=== PATIENT | male | born 1950 | race Caucasian/White ===

== ENCOUNTER → 2023-09-10 12:54 | Outpatient (REF) | payer MEDICARE, OTHER, SELFPAY | LOC: RAD 12:54 | PROVIDERS: ATTENDING PHYSICIAN Nurse Practitioner Family | DX: M54.41 Lumbago with sciatica, right side (principal) | CPT/HCPCS: 72110; 73502 ==

== ENCOUNTER → 2023-11-19 10:36 | Outpatient (REF) | payer MEDICARE, OTHER, SELFPAY | LOC: MRI 3T 10:36 | PROVIDERS: ATTENDING PHYSICIAN Surgery; FAMILY PHYSICIAN Internal Medicine Geriatric Medicine | DX: R97.20 Elevated prostate specific antigen [PSA] (principal) | CPT/HCPCS: 72197; A9575 ==

== ENCOUNTER → 2023-12-04 17:26 | Outpatient (REF) | payer MEDICARE, OTHER, SELFPAY | LOC: CLAB 17:26 | PROVIDERS: ATTENDING PHYSICIAN Surgery | DX: R97.20 Elevated prostate specific antigen [PSA] (principal) | CPT/HCPCS: 88305 ==

== ENCOUNTER 2024-01-10 06:07 | Outpatient (RCR) | payer MEDICARE, OTHER, SELFPAY | END 2024-01-10 23:59 | disposition home or self-care (01) | LOC: RPT 06:07 | PROVIDERS: ATTENDING PHYSICIAN Specialist; FAMILY PHYSICIAN Internal Medicine Geriatric Medicine | DX: C61 Malignant neoplasm of prostate (principal); Z73.6 Limitation of activities due to disability | CPT/HCPCS: 97162; 97530 ==

== ENCOUNTER 2024-01-15 06:13 | Inpatient (IN) | payer MEDICARE, OTHER, SELFPAY ==
[2024-01-10 08:44] LABS: Hematocrit 43.6 % (39.0-52.0); Hemoglobin 14.2 g/dL (13.0-18.0); Mean Corp Hgb Conc. 32.6 g/dL (33.0-37.0); Mean Corpuscular Hgb 30.7 pg (27.0-31.0); Mean Corpuscular Volume 94.2 fL (80.0-94.0); Mean Platelet Volume 10.8 fL (7.4-10.4); Platelet Count 219 10^3/uL (130-400); Red Blood Cell Count 4.63 10^6/uL (4.70-6.10); Red Cell Dist. Width 13.6 % (11.5-14.5); White Blood Cell Count 6.8 10^3/uL (4.8-10.8)
[2024-01-10 09:40] LABS: Blood Urea Nitrogen 29 mg/dl (9-20); Calcium 9.4 mg/dl (8.4-10.2); Carbon Dioxide 25 mmol/L (22-30); Chloride 104 mmol/L (98-107); Glucose 82 mg/dl (70-99); Potassium 4.8 mmol/L (3.5-5.1); Sodium 138 mmol/L (135-145); eGFR > 60.00
[2024-01-10 10:09] VITALS: BMI 31.2
[2024-01-10 10:19] LABS: Urine Albumin Negative (Neg - Trace); Urine Bilirubin Negative (Negative); Urine Character Clear (Clear); Urine Color Yellow; Urine Glucose Negative (Negative); Urine Ketone Negative (Negative); Urine Leukocyte Negative (Negative); Urine Nitrite Negative (Negative); Urine Occult Blood Negative (Negative); Urine Urobilinogen Negative (Neg - 1+)
[2024-01-15] VITALS (24 sets, daily range): BP systolic 97–131; BP diastolic 55–102; BMI 31.2
[2024-01-15] MEDS: NEBCIN 480 MG/100 ML ENEMA 1 BOTTLE RECTAL (07:10)
--- NOTE | 2024-01-15 09:39 | W.IMMPOSTOP ---
Surgical Immed Post Op Note
-
Primary Surgeon: Cal
Assisting Surgeon: Ama
Pre-op Diagnosis: Prostate cancer
Post-op Diagnosis: Same
Procedure Performed: Radical perineal prostatectomy, bladder neck reconstruction
Anesthesia Type: GET
Specimen / Cultures: prostate gland, bladder neck and urethral margins for frozen section
Estimated Blood Loss: 150 ml
Complications: None
[2024-01-15] MEDS: DETROL LA 4 MG PO (09:59)
[2024-01-15] MEDS: VALIUM INJECTION 5 MG IV (10:02)
[2024-01-15] MEDS: DILAUDID 0.25 MG IV ×2 (10:42→13:30)
[2024-01-15 10:43] LABS: Hematocrit 39.2 % (39.0-52.0); Hemoglobin 13.1 g/dL (13.0-18.0)
[2024-01-15] MEDS: TORADOL 15 MG IV ×3 (10:44→21:44)
[2024-01-15 10:56] LABS: Blood Urea Nitrogen 17 mg/dl (9-20); Calcium 7.9 mg/dl (8.4-10.2); Carbon Dioxide 22 mmol/L (22-30); Chloride 107 mmol/L (98-107); Estimated Creatinine Clearance 81 ml/min; Glucose 167 mg/dl (70-99); Potassium 3.9 mmol/L (3.5-5.1); Sodium 138 mmol/L (135-145); eGFR > 60.00
[2024-01-15] MEDS: NSS with KCL 20 MEQ 1000 IV ×2 (11:38→21:45)
[2024-01-15] MEDS: DILAUDID 0.5 MG IV (12:13)
--- NOTE | 2024-01-15 14:00 | PTCARENOTE ---
Pt received from the PACU via bed. Transport was w/o incident. Pt is awake, sl drowsy and easily arousable, able to answer questions approp. VSS, Pt is afebrile. Dressing to Perirectal area with dressing showing moderate amount of bloody drainage.
Pt with bao drain from wound area, drainage expected. Dressing reinforced. Pt instructed on plan of care. Pt verbalized understanding of instructions. Pt reports pain as minimal at present, recently medicated for pain in the PACU. Pt denies
nausea. Call moser is within reach.
[2024-01-15] MEDS: COLACE PO (14:29)
[2024-01-15] MEDS: COLACE 100 MG PO (17:04)
[2024-01-15] MEDS: TYLENOL 650 MG PO ×2 (17:06→21:43)
[2024-01-15] MEDS: POLYSPORIN OINTMENT 1 APPLIC TOPICAL (21:45)
[2024-01-16 03:00] VITALS: BP 120/81
[2024-01-16] MEDS: TORADOL 15 MG IV ×2 (04:00→08:56)
--- NOTE | 2024-01-16 04:05 | DOWNTIME ---
There was a [facility] [employer] Downtime on 01/16/2024 from 0100 to 01/16/2024 at 0350. Downtime documentation of patient's care, including medication administrations, has been reconciled in the electronic record per guidelines. Refer to the
patient's paper chart under the miscellaneous tab to see printed paper medication records and downtime forms.
[2024-01-16] MEDS: VALIUM INJECTION 5 MG IV (04:17)
[2024-01-16 05:44] VITALS: BMI 30.7
[2024-01-16 06:37] LABS: Hemoglobin 13.1 g/dL (13.0-18.0); Mean Corp Hgb Conc. 34.5 g/dL (33.0-37.0); Mean Corpuscular Hgb 31.5 pg (27.0-31.0); Mean Corpuscular Volume 91.3 fL (80.0-94.0); Mean Platelet Volume 10.7 fL (7.4-10.4); Platelet Count 202 10^3/uL (130-400); Red Blood Cell Count 4.16 10^6/uL (4.70-6.10); Red Cell Dist. Width 13.7 % (11.5-14.5); White Blood Cell Count 13.7 10^3/uL (4.8-10.8)
[2024-01-16 06:57] LABS: Blood Urea Nitrogen 14 mg/dl (9-20); Calcium 8.4 mg/dl (8.4-10.2); Carbon Dioxide 25 mmol/L (22-30); Chloride 108 mmol/L (98-107); Estimated Creatinine Clearance 80 ml/min; Glucose 118 mg/dl (70-99); Potassium 4.4 mmol/L (3.5-5.1); Sodium 140 mmol/L (135-145); eGFR > 60.00
[2024-01-16] MEDS: LEVAQUIN 100 IV (08:54)
[2024-01-16] MEDS: NSS with KCL 20 MEQ IV (08:55)
[2024-01-16] MEDS: POLYSPORIN OINTMENT 1 APPLIC TOPICAL ×2 (08:55→21:40)
[2024-01-16] MEDS: TYLENOL 650 MG PO ×3 (08:56→21:40)
[2024-01-16] MEDS: COLACE 100 MG PO ×3 (08:57→18:33)
[2024-01-16] MEDS: DETROL LA 4 MG PO (08:59)
--- NOTE | 2024-01-16 09:07 | W.PN.SURGUPD ---
Surgical Update
Surgical Update
Stable 1 day s/p radical perineal prostatectomy
Afeb/VSS
Tolerating diet
Urine clear
Dressing and bao drain removed
---
Anticipate discharge in 24 hours
--- NOTE | 2024-01-16 11:00 | CM ---
Patient seen at bedside. IA complete. Case management consult completed. VN
IMM explained & signed. In chart.
Lives in a 2 story home with - 1st floor bed & bath. 0 steps to enter
PLOF: Independent
Denies DME
Denies housing/utilities/food/transportation insecurities
Options reviewed for VN - prefers [facility]
Referral in [facility] - [facility] liaison notifed.
PCP: Tai Srivastava
Pharmacy: [address], [place]
PLAN: Home with [facility]
[2024-01-16 12:10] VITALS: BP 114/80
--- NOTE | 2024-01-16 13:47 | VNURNOTE ---
Home Health Liaison met with patient, spouse and daughter to discuss [facility] nurse/therapy, visits, schedule and homebound status. All are agreeable and understand that visits at home will be 2-3 x per week to assess and teach medical management.
[facility] brochure provided with contact information. All are aware that [facility] will contact them for start of care in 1-2 days after discharge from .
[facility] referral accepted in [facility].
[2024-01-16 15:55] VITALS: BP 134/93
[2024-01-16] MEDS: TORADOL IV (18:20)
[2024-01-16] MEDS: MOTRIN 600 MG PO (18:34)
[2024-01-16 23:30] VITALS: BP 115/83
[2024-01-17] MEDS: MOTRIN 600 MG PO ×3 (00:09→11:23)
[2024-01-17 05:31] VITALS: BMI 31.2
[2024-01-17 07:30] VITALS: BP 131/89
--- NOTE | 2024-01-17 07:48 | W.PN.URO.CBU ---
Today's Communication / Plan
-
Honeycutt and drainage bag teaching
Change dressing prn
D/c home
Scheduled for VN on 01/28/24 for AM catheter removal
Assessment / Plan
-
Prostate cancer s/p RPP 01/14
All post-op milestones met.
Clinically stable for discharge.
Diagnosis
-
Date of Service: January 17, 2024
-
Patient Diagnosis:
Prostate cancer
Post Op Day:
01/14: s/p RPP
Subjective
-
Pain minimal and improving.
Dressing w/o significant drainage o/n.
Tolerating diet.
Ambulating comfortably.
Eager to go home!
Objective
-
Vital Signs
Temp Pulse Resp BP Pulse Ox
98.4 F 87 16 115/83 98
01/16/24 23:30 01/16/24 23:30 01/16/24 23:30 01/16/24 23:30 01/16/24 23:30
Intake and Output
01/16/24 01/17/24 01/18/24
06:59 06:59 06:59
Intake Total 1790 / 1790 920 / 920
Output Total 1500 / 1500 2700 / 2700
Balance 290 / 290 -1780 / -1780
Intake:
Oral fluids 240 / 240 720 / 720
IV fluids (Total) 1550 / 1550 200 / 200
normosol 250 / 250
nss + 20mEq KCl 100 / 100
Output:
Urine, Honeycutt 1500 / 1500 2700 / 2700
Laboratory Results
01/16/24 05:55
01/16/24 05:55
Physical Exam
-
General - well developed, well nourished, no acute distress
Abdomen - soft, non-tender, non-distended
Genitalia - normal, Honeycutt catheter w/ green-tinged UOP, perineal sutures intact, wound c/d/i
Skin - warm & dry with no rash
Neuro - AOx3, no motor deficits
Extremities - no clubbing, no cyanosis, no edema
Counseling
-
Total 50 min spent reviewing intraop findings, post-op instructions, wound care, and follow-up plan.
Care Review
Data Reviewed
Discussed with: Family
Total Time Spent with Patient (in minutes): 50
--- NOTE | 2024-01-17 08:22 | W.DS.TRANS ---
DC Summary - [employer] Super[employer]
-
Discharge Instructions:
Sleep Apnea Risk Low
Discharge Diagnosis/Procedures prostate cancer
Diet No restrictions
Activity No strenuous activity
Additional Activity for 1 week
Driving Restrictions No driving for 1 week
Bathing Restrictions shower off after each bowel movement
Other Services VN
Wound Care VN to remove Honeycutt catheter around 10 am 01/28/24
Instructions:
Stand-Alone Forms:
Changes to Home Medications: No
Discharge Medications:
DC Medications w/original date entered in [facility]
atorvastatin 40 mg tablet 40 mg PO DAILY 01/08/24
cholecalciferol (vitamin D3) 25 mcg (1,000 unit) tablet (Vitamin D3) 25 mcg PO DAILY 01/08/24
multivitamin 1 tab PO DAILY 01/08/24
magnesium citrate 150 ml PO DAILY 01/15/24
tramadol 50 mg tablet 50 mg PO Q6HPRN PRN severe pain #15 tabs 01/17/24
Home Medication Changes
Pending Results: Yes
Additional Pending Results:
surgical pathology
Total time spent discharging patient (in min): 50
[2024-01-17] MEDS: TYLENOL 650 MG PO (08:27)
[2024-01-17] MEDS: POLYSPORIN OINTMENT 1 APPLIC TOPICAL (08:29)
[2024-01-17] MEDS: COLACE 100 MG PO ×2 (08:31→11:23)
[2024-01-17 11:45] VITALS: BP 139/92
== END 2024-01-17 12:05 | disposition home health service (06) | DRG 708 ==
LOC: 2 SOUTH 06:13
PROVIDERS: ADMITTING PHYSICIAN Specialist; FAMILY PHYSICIAN Internal Medicine Geriatric Medicine
PROC: 0VT04ZZ Resection of Prostate, Percutaneous Endoscopic Approach (ICD-10-PCS; 2024-01-15)
DX: C61 Malignant neoplasm of prostate (principal)
CPT/HCPCS: 88305; 88309; 88332; 36415; 80048; 81003; 85014; 85018; 85027; 86850; 86900; 86901; 88331; 93005; A4648

== ENCOUNTER 2024-03-18 06:41 | Outpatient (RCR) | payer MEDICARE, OTHER, SELFPAY | END 2024-03-18 23:59 | disposition home or self-care (01) | LOC: RPT 06:41 | PROVIDERS: ATTENDING PHYSICIAN Specialist; FAMILY PHYSICIAN Internal Medicine Geriatric Medicine | DX: C61 Malignant neoplasm of prostate (principal); Z73.6 Limitation of activities due to disability; R32 Unspecified urinary incontinence; Z90.79 Acquired absence of other genital organ(s) | CPT/HCPCS: 97110; 97112; 97164; 97530 ==

== ENCOUNTER 2024-04-15 06:28 | Outpatient (RCR) | payer MEDICARE, OTHER, SELFPAY | END 2024-04-15 23:59 | disposition home or self-care (01) | LOC: RPT 06:28 | PROVIDERS: ATTENDING PHYSICIAN Specialist; FAMILY PHYSICIAN Internal Medicine Geriatric Medicine | DX: C61 Malignant neoplasm of prostate (principal); Z73.6 Limitation of activities due to disability; R32 Unspecified urinary incontinence; Z90.79 Acquired absence of other genital organ(s) | CPT/HCPCS: 97110; 97112; 97530 ==

== ENCOUNTER → 2024-04-28 06:53 | Outpatient (REF) | payer MEDICARE, OTHER, SELFPAY | LOC: RAD 06:53 | PROVIDERS: ATTENDING PHYSICIAN Internal Medicine Geriatric Medicine | DX: E78.2 Mixed hyperlipidemia (principal); E66.01 Morbid (severe) obesity due to excess calories; I11.9 Hypertensive heart disease without heart failure; H25.13 Age-related nuclear cataract, bilateral; M47.12 Other spondylosis with myelopathy, cervical region; J30.89 Other allergic rhinitis; N52.8 Other male erectile dysfunction; Z13.89 Encounter for screening for other disorder; R41.3 Other amnesia; E55.9 Vitamin D deficiency, unspecified; G60.9 Hereditary and idiopathic neuropathy, unspecified; R97.20 Elevated prostate specific antigen [PSA]; E04.1 Nontoxic single thyroid nodule | CPT/HCPCS: 76536 ==

== ENCOUNTER 2024-05-06 06:32 | Outpatient (RCR) | payer MEDICARE, OTHER, SELFPAY | END 2024-05-06 23:59 | disposition home or self-care (01) | LOC: RPT 06:32 | PROVIDERS: ATTENDING PHYSICIAN Specialist; FAMILY PHYSICIAN Internal Medicine Geriatric Medicine | DX: C61 Malignant neoplasm of prostate (principal); Z73.6 Limitation of activities due to disability; R32 Unspecified urinary incontinence; Z90.79 Acquired absence of other genital organ(s) | CPT/HCPCS: 97112; 97530 ==

== ENCOUNTER 2024-05-26 13:06 | Outpatient (RCR) | payer MEDICARE, OTHER, SELFPAY | END 2024-05-26 23:59 | disposition home or self-care (01) | LOC: RPT 13:06 | PROVIDERS: ATTENDING PHYSICIAN Specialist; FAMILY PHYSICIAN Internal Medicine Geriatric Medicine | DX: C61 Malignant neoplasm of prostate (principal); Z73.6 Limitation of activities due to disability; R32 Unspecified urinary incontinence; Z90.79 Acquired absence of other genital organ(s) | CPT/HCPCS: 97112; 97530 ==

== ENCOUNTER 2024-06-24 07:13 | Outpatient (RCR) | payer MEDICARE, OTHER, SELFPAY | END 2024-06-24 23:59 | disposition home or self-care (01) | LOC: RPT 07:13 | PROVIDERS: ATTENDING PHYSICIAN Specialist; FAMILY PHYSICIAN Internal Medicine Geriatric Medicine | DX: C61 Malignant neoplasm of prostate (principal); Z73.6 Limitation of activities due to disability; R32 Unspecified urinary incontinence; Z90.79 Acquired absence of other genital organ(s) | CPT/HCPCS: 97530 ==

== ENCOUNTER 2024-07-22 07:50 | Outpatient (RCR) | payer MEDICARE, OTHER, SELFPAY | END 2024-07-22 09:03 | disposition home or self-care (01) | LOC: RPT 07:50 | PROVIDERS: ATTENDING PHYSICIAN Specialist; FAMILY PHYSICIAN Internal Medicine Geriatric Medicine | DX: C61 Malignant neoplasm of prostate (principal); Z73.6 Limitation of activities due to disability; R32 Unspecified urinary incontinence; Z90.79 Acquired absence of other genital organ(s) | CPT/HCPCS: 97530 ==

== ENCOUNTER → 2024-09-15 08:27 | Outpatient (REF) | payer MEDICARE, OTHER, SELFPAY | LOC: HWRAD 08:27 | PROVIDERS: ATTENDING PHYSICIAN Internal Medicine Geriatric Medicine | DX: Z00.00 Encounter for general adult medical examination without abnormal findings (principal); I50.9 Heart failure, unspecified; E66.01 Morbid (severe) obesity due to excess calories; E78.2 Mixed hyperlipidemia; I11.9 Hypertensive heart disease without heart failure; H25.13 Age-related nuclear cataract, bilateral; M47.12 Other spondylosis with myelopathy, cervical region; J30.89 Other allergic rhinitis; N52.8 Other male erectile dysfunction; Z13.89 Encounter for screening for other disorder; R41.3 Other amnesia; E55.9 Vitamin D deficiency, unspecified; G60.9 Hereditary and idiopathic neuropathy, unspecified; E04.1 Nontoxic single thyroid nodule | CPT/HCPCS: 75571 ==

== ENCOUNTER → 2024-09-24 13:04 | Outpatient (REF) | payer MEDICARE, OTHER, SELFPAY | LOC: RCS 13:04 | PROVIDERS: ATTENDING PHYSICIAN Internal Medicine Geriatric Medicine | DX: I25.10 Atherosclerotic heart disease of native coronary artery without angina pectoris (principal); R06.09 Other forms of dyspnea | CPT/HCPCS: 93017; 93350 ==